=== PATIENT | female | born 1975 | race Caucasian/White ===

== ENCOUNTER 2018-10-10 10:15 | Observation (INO) ==
--- NOTE | 2018-10-10 11:10 | Emergency Department Note ---
Addendum entered and electronically signed by Vernell Erazo 10/10/18 12:55: EKG 10/10/18 1107: HR 95, rhythm sinus, axis normal. AK 147, QRS 102, QTc 497. No evidence of ST elevation or depression. Original Note: Disposition Clinical Impression: Anemia Qualifiers: Anemia type: unspecified type Qualified Code(s): D64.9 - Anemia, unspecified Disposition: Admitted As Inpatient Condition: Good Time of Disposition: 12:37 General Adult HPI - General Chief complaint: ED Recheck/Abnormal Lab/Rx Stated complaint: abnormal lab Time Seen by Provider: 10/10/18 10:58 Source: patient Mode of arrival: private vehicle Limitations: no limitations Nursing Notes Reviewed: Yes Vital Signs Reviewed: Yes - History of Present Illness HPI Narrative: Patient is a 43-year-old female with a past medical history of abnormal uterine bleeding that became more intense after the of her daughter in 2011. Patient states that she began to have a menstrual period the second week of July this year and it continued all the way to the end of August. Patient states that she then began bleeding again this past 10/09/18. She is scheduled to have a D&C on Friday with her [employer] Dr Garduno, she went to have preop screening labs and was found to have a low hemoglobin at 5.5 and was instructed to come to the emergency department to get a blood transfusion and to be admitted. She is currently experiencing vaginal bleeding, feels weak and tired all the time, has a headache, feels chilled, but denies other complaints. Pain Scale: 5 - Related Data Home Medications Medication Instructions Recorded Confirmed RX: ALPRAZolam [Xanax 1 MG Tablet] 1 mg PO QID PRN 07/06/18 10/10/18 RX: Fluticasone Propionate Nasal 2 spr NS DAILY PRN 07/06/18 10/10/18 [Flonase] RX: Gabapentin [Neurontin] 800 mg PO QID 07/06/18 10/10/18 RX: Loratadine [Claritin] 10 mg PO DAILY PRN 07/06/18 10/10/18 RX: Trazodone HCl 50 mg PO HS PRN 07/06/18 10/10/18 RX: rOPINIRole [Requip] 0.25 mg PO HS 07/06/18 10/10/18 Cyanocobalamin (Vitamin B-12) 1,000 mcg PO DAILY 10/10/18 10/10/18 [Vitamin B12] Metoprolol XL (24 HR) Succ [Toprol 25 mg PO DAILY 10/10/18 10/10/18 XL] Multivitamin-Min/Iron/FA/Vit K 1 each PO DAILY 10/10/18 10/10/18 [Multi-Day Plus Minerals Tablet] Allergies Allergy/AdvReac Type Severity Reaction Status Date / Time Cyclobenzaprine Allergy Hives Verified 10/07/18 11:48 [From Flexeril] tramadol AdvReac Vomiting Verified 10/07/18 11:48 Constitutional: Reports: chills. Denies: fever Eyes: Denies: eye pain ENT ED: Denies: ear pain Cardiovascular: Reports: chest pain, palpitations, dyspnea on exertion Respiratory: Reports: dyspnea. Denies: cough, wheezes, hemoptysis Gastrointestinal: Reports: constipation. Denies: abdominal pain, nausea, vomiting, diarrhea Genitourinary: Denies: urgency, dysuria Musculoskeletal: Denies: back pain, neck pain Integumentary: Denies: rash, abrasion Neurological: Reports: headache. Denies: weakness, numbness, paresthesias Psychiatric: Reports: anxiety. Denies: depression Endocrine: Reports: fatigue Hematological/Lymphatic: Denies: easy bleeding, easy bruising Allergic/Immunologic: Denies: facial swelling, urticaria Past Medical History - Past Medical History Medical history: Reports: asthma, hypertension Psychiatric history: Reports: anxiety, depression - Social History Smoking Status: Current every day smoker Smokeless Tobacco Status: No Alcohol use: Reports: none Drug use: Reports: none Physical Exam - General Limitations: no limitations General appearance: alert, in no apparent distress - Head Head exam: atraumatic, normocephalic - Eye Eye exam: Present: PERRL, EOMI, other (subconjunctival pallor) - ENT ENT exam: normal exam, normal oropharynx - Neck Neck exam: Present: normal inspection, full ROM - Chest Chest inspection: Present: normal inspection, symmetric chest wall rise - Respiratory Respiratory exam: Present: normal lung sounds bilaterally - Cardiovascular Cardiovascular exam: Present: normal rhythm, tachycardia - Abdominal Exam Abdominal exam: Present: soft, Non-Tender - Expanded Lower Extremity Exam Hip/Pelvis exam: Present: normal inspection, full ROM - Back Exam Back exam: Present: normal inspection, full ROM - Neurological Exam Neurological exam: Present: alert, oriented X3 - Psychiatric Psychiatric exam: Present: normal affect, normal mood - Skin Skin exam: Present: warm, dry, intact, pallor Course Course Narrative: Pt will have labs redrawn to include CBC, BMP, PT/INR, Type & screen. Will likely be transfused and then admitted. Vital Signs Temperature 98.6 F 10/10/18 10:18 Pulse Rate 106 10/10/18 10:18 Respiratory Rate 18 10/10/18 10:18 Blood Pressure 147/93 10/10/18 10:18 O2 Sat by Pulse Oximetry 100 10/10/18 10:18 Temperature 98.6 F 10/10/18 10:18 Pulse Rate 93 10/10/18 11:18 Respiratory Rate 20 10/10/18 11:18 Blood Pressure 150/77 10/10/18 11:18 O2 Sat by Pulse Oximetry 98 10/10/18 11:18 Oxygen Delivery Oxygen Delivery Room Air Medical Decision Making - MDM Narrative Medical decision making narrative: Pts Hg was 5.4, so she was type & screened and prepared for transfusion. Spoke with Keli Viera with [facility] and she agreed to admit the patient to their service as she is scheduled for a procedure on Friday and will need several more transfusions. Pt verbalized understanding and agreement with the plan. Pt was given an opportunity to ask questions and all of her concerns were addressed. Pt remained stable while in the department. - Medical Records Medical records reviewed: Yes I reviewed the patient's medical records. - Lab Data Lab results reviewed: Yes I reviewed the patient's lab results. Result diagrams: 10/10/18 11:19 10/10/18 11:27 Lab Results 10/10/18 10/10/18 10/10/18 Range/Units 11:19 11:27 11:27 WBC 6.1 (4.3-11.1) K/mcL RBC 2.70 L (3.82-4.97) M/mcL Hgb 5.4 L* (11.5-15.4) g/dL Hct 20.3 L (35.3-44.9) % MCV 75.2 L (83.0-100.0) fL MCH 20.0 L (28.0-33.3) pg MCHC 26.6 L (31.6-35.5) g/dL RDW 17.8 H (11.5-14.5) % Plt Count 311 (140-400) K/mcL MPV 10.3 (9.4-12.4) fL Immature Gran % 0.2 (0-4) % Seg Neutrophils % 71.7 % Lymphocytes % 18.0 % Monocytes % 6.5 % Eosinophils % 3.4 % Basophils % 0.2 % Neutrophils # 4.4 (1.6-8.9) K/mcL Lymphocytes # 1.1 (0.6-4.6) K/mcL Monocytes # 0.4 (0.0-1.3) K/mcL Eosinophils # 0.2 (0.0-0.6) K/mcL Basophils # 0.0 (0.0-0.2) K/mcL Platelet Estimate Normal (Normal) Polychromasia 1+ A (Not Present) Hypochromasia Present A (Not Present) Poikilocytosis 1+ A (Not Present) Anisocytosis 1+ A (Not Present) Microcytosis Present A (Not Present) PT 11.4 (9.4-12.1) Seconds INR 1.0 Sodium 137 (136-145) mEq/L Potassium 3.5 (3.5-5.1) mEq/L Chloride 107 (98-107) mEq/L Carbon Dioxide 23 (23-29) mEq/L BUN 8 (6-20) mg/dL Creatinine 0.54 L (0.60-1.20) mg/dL Est GFR ( Amer) > 60 (> 60) Est GFR (Non-Af Amer) > 60 (> 60) BUN/Creatinine Ratio 15 (6-26) Glucose 120 H (70-105) mg/dL Calculated Osmolality 284 (280-300) Calcium 8.3 L (8.6-10.3) mg/dL Total Bilirubin 0.4 (0.3-1.0) mg/dL AST 12 L (13-39) Units/L ALT 20 (7-52) Units/L Alkaline Phosphatase 73 (34-104) Units/L Troponin I < 0.03 (< 0.04) ng/mL Serum Total Protein 6.4 (6.4-8.9) g/dL Albumin 3.7 (3.5-5.7) g/dL Globulin 2.7 (2.4-3.5) g/dL Albumin/Globulin Ratio 1.4 (1.1-2.2) Blood Type Antibody Screen Crossmatch 10/10/18 Range/Units 11:27 WBC (4.3-11.1) K/mcL RBC (3.82-4.97) M/mcL Hgb (11.5-15.4) g/dL Hct (35.3-44.9) % MCV (83.0-100.0) fL MCH (28.0-33.3) pg MCHC (31.6-35.5) g/dL RDW (11.5-14.5) % Plt Count (140-400) K/mcL MPV (9.4-12.4) fL Immature Gran % (0-4) % Seg Neutrophils % % Lymphocytes % % Monocytes % % Eosinophils % % Basophils % % Neutrophils # (1.6-8.9) K/mcL Lymphocytes # (0.6-4.6) K/mcL Monocytes # (0.0-1.3) K/mcL Eosinophils # (0.0-0.6) K/mcL Basophils # (0.0-0.2) K/mcL Platelet Estimate (Normal) Polychromasia (Not Present) Hypochromasia (Not Present) Poikilocytosis (Not Present) Anisocytosis (Not Present) Microcytosis (Not Present) PT (9.4-12.1) Seconds INR Sodium (136-145) mEq/L Potassium (3.5-5.1) mEq/L Chloride (98-107) mEq/L Carbon Dioxide (23-29) mEq/L BUN (6-20) mg/dL Creatinine (0.60-1.20) mg/dL Est GFR ( Amer) (> 60) Est GFR (Non-Af Amer) (> 60) BUN/Creatinine Ratio (6-26) Glucose (70-105) mg/dL Calculated Osmolality (280-300) Calcium (8.6-10.3) mg/dL Total Bilirubin (0.3-1.0) mg/dL AST (13-39) Units/L ALT (7-52) Units/L Alkaline Phosphatase (34-104) Units/L Troponin I (< 0.04) ng/mL Serum Total Protein (6.4-8.9) g/dL Albumin (3.5-5.7) g/dL Globulin (2.4-3.5) g/dL Albumin/Globulin Ratio (1.1-2.2) Blood Type O POSITIVE Antibody Screen NEGATIVE Crossmatch See Detail Attestation Statement - Attestation Attestation: Resident Attestation: I examined this patient and my medical decision making was reviewed with the Resident Physician. I agree with the documented findings, disposition and treatment plan as described except to the extent set forth below. We independently had [id number] contact with the patient. Patient presenting for results of abnormal hemoglobin. Patient with hemoglobin of 5. Patient with irregular bleeding. Patient scheduled with [facility] here at [facility] for further evaluation. This time patient has fatigue. Patient has significant symptoms stating she feels like she ran a marathon just trying to get to the kitchen. Patient's repeat hemoglobin found to be 5. Patient will undergo transfusion and further admission for [facility] evaluation. Resting comfortable in bed, no acute distress, regular rhythm, clear to auscultation bilaterally, abdomen soft nontender to palpation without guarding or rebound.
[2018-10-10 11:36] LABS: Basophils % 0.2 %; Eosinophils # 0.2 K/mcL (0.0-0.6); Eosinophils % 3.4 %; Hematocrit 20.3 % (35.3-44.9); Immature Granulocytes % 0.2 % (0-4); Lymphocytes # 1.1 K/mcL (0.6-4.6); Mean Corpuscular HGB Conc 26.6 g/dL (31.6-35.5); Mean Corpuscular Volume 75.2 fL (83.0-100.0); Mean Platelet Volume 10.3 fL (9.4-12.4); Monocytes # 0.4 K/mcL (0.0-1.3); Monocytes % 6.5 %; Neutrophils # 4.4 K/mcL (1.6-8.9); Platelet Count 311 K/mcL (140-400); Red Cell Distribution Width 17.8 % (11.5-14.5); Segmented Neutrophils % 71.7 %
[2018-10-10 11:39] LABS: Hemoglobin 5.4 g/dL (11.5-15.4)
[2018-10-10 11:56] LABS: Alanine Aminotransferase 20 Units/L (7-52); Albumin 3.7 g/dL (3.5-5.7); Albumin/Globulin Ratio 1.4 (1.1-2.2); Alkaline Phosphatase 73 Units/L (34-104); Aspartate Amino Transferase 12 Units/L (13-39); BUN/Creatinine Ratio 15 (6-26); Bilirubin,Total 0.4 mg/dL (0.3-1.0); Blood Urea Nitrogen 8 mg/dL (6-20); Calcium 8.3 mg/dL (8.6-10.3); Carbon Dioxide 23 mEq/L (23-29); Chloride 107 mEq/L (98-107); Globulin 2.7 g/dL (2.4-3.5); Glucose 120 mg/dL (70-105); Osmolality,Calculated 284 (280-300); Potassium 3.5 mEq/L (3.5-5.1); Sodium 137 mEq/L (136-145); Total Protein 6.4 g/dL (6.4-8.9); Troponin I < 0.03 ng/mL (< 0.04); eGFR For Non-African Americans > 60 (> 60)
[2018-10-10 11:57] LABS: Anisocytosis 1+ (Not Present); Hypochromasia Present (Not Present); Microcytosis Present (Not Present); Platelet Estimate Normal (Normal); Poikilocytosis 1+ (Not Present); Polychromasia 1+ (Not Present)
[2018-10-10 12:24] LABS: Prothrombin Time 11.4 Seconds (9.4-12.1)
[2018-10-10] MEDS ORDERED: 0.9 % Sodium Chloride 250 ML ONE ×2 (12:39→21:14)
[2018-10-10] MEDS ORDERED: traZODone 50 MG TABLET PO PRN (14:57)
[2018-10-10] MEDS ORDERED: Loratadine 10 MG TABLET PO PRN (14:57)
[2018-10-10] MEDS ORDERED: ALPRAZolam 1 MG TABLET PO PRN (14:57)
[2018-10-10] MEDS ORDERED: Fluticasone Propionate Nasal 50 MCG/SPRAY BOTTLE NS PRN (14:57)
[2018-10-10] MEDS: Gabapentin 400 MG CAPSULE PO SCH ×2 (17:09→21:04)
--- NOTE | 2018-10-10 17:37 | OB/GYN History & Physical ---
Date of Encounter: 10/10/18 Time of Encounter: 17:00 Assessment and Plan (1) Abnormal uterine bleeding Current visit: Yes Status: Acute (2) Anemia Current visit: Yes Status: Acute Place in observation Plan to replace RBCs with 4 units Re-evaluate CBC 4 hours after last unit Plan to discharge tomorrow if Hgb greater than 9 POC per consult with Dr Cline D&C scheduled with Dr Garduno on Friday Qualifiers: Anemia type: unspecified type Qualified Code(s): D64.9 - Anemia, unspecified History of Present Illness Chief complaint: Blood loss anemia HPI: Ms Joseph is a 43-year-old female with a past medical history of abnormal uterine bleeding that became more intense after the of her daughter in 2011. Patient states that she began to have a menstrual period the second week of July this year and it continued all the way to the end of August. Patient states that she then began bleeding again this past 10/09/18. She is scheduled to have a D&C on Friday with her [employer] Dr Garduno. Her preop testing showed a hemoglobin of less than 6 and per anesthesia she is to have a Hgb of 9 or greater. She was told to come to the emergency department for a blood transfusion and to be admitted. She states her bleeding is heavy and c/o weakness, fatigue, and a headache. Past Med Surg Social Fam HX - Past Medical History Medical history: asthma, hypertension Additional medical history: anemia. fibroid tumor Psychiatric history: anxiety, depression - Past Surgical History Additional surgical history: c/s x2. tubal ligation - Social History Smoking Status: Current every day smoker Smokeless Tobacco Status: No Alcohol use: none Drug use: none Medications and Allergies RX: ALPRAZolam [Xanax 1 MG Tablet] 1 mg PO QID PRN 07/06/18 [History] RX: Fluticasone Propionate Nasal [Flonase] 2 spr NS DAILY PRN 07/06/18 [History] RX: Gabapentin [Neurontin] 800 mg PO QID 07/06/18 [History] RX: Loratadine [Claritin] 10 mg PO DAILY PRN 07/06/18 [History] RX: Trazodone HCl 50 mg PO HS PRN 07/06/18 [History] RX: rOPINIRole [Requip] 0.25 mg PO HS 07/06/18 [History] Cyanocobalamin (Vitamin B-12) [Vitamin B12] 1,000 mcg PO DAILY 10/10/18 [Histor y] Metoprolol XL (24 HR) Succ [Toprol XL] 25 mg PO DAILY 10/10/18 [History] Multivitamin-Min/Iron/FA/Vit K [Multi-Day Plus Minerals Tablet] 1 each PO DAILY 10/10/18 [History] Allergy/AdvReac Type Severity Reaction Status Date / Time Cyclobenzaprine Allergy Hives Verified 10/07/18 11:48 [From Flexeril] tramadol AdvReac Vomiting Verified 10/07/18 11:48 Review of System OB All systems PM: reviewed and no additional remarkable complaints except as stated - Constitutional Constitutional ROS IM: as per HPI, daytime sleepiness, fatigue, headache(s) - Genitourinary Genitourinary: abnormal vaginal bleeding, menorrhagia - Menstruation Menstruation: as per HPI, currently menstrual, cycle > 35 days, menses 8 or > days, period heavy Exam - Vital Signs Vital signs: Initial Vital Signs Temp Pulse Resp BP Pulse Ox 98.6 F 106 18 147/93 100 10/10/18 10:18 10/10/18 10:18 10/10/18 10:18 10/10/18 10:18 10/10/18 10:18 - Constitutional Constitutional: well developed, well nourished, no acute distress, obese - HEENT HEENT: Normocephaly, Mucus Membranes Moist - Lungs Respiratory exam: CTAB - Cardiovascular Cardiovascular exam: RRR - Abdomen Abdomen: Present: bowel sounds normal, non tender - Extremities Extremities exam: normal capillary refill, normal inspection, radial pulses palpable and symmetrical - Vulva Vulva: bilateral: normal - Vagina Vagina: Present: normal moisture - Cervix Cervix: Present: discharge (dark red/brown liquid blood from cervix). Absent: lesion - Uterus Uterus exam: Present: normal size. Absent: tender - Adnexa Adnexa: bilateral: normal - Anus/Rectum Anus/Rectum: Present: normal perianal skin Results Result Diagrams: 10/10/18 11:19 10/10/18 11:27 Abnormal lab results RBC 2.70 M/mcL (3.82-4.97) L 10/10/18 11:19 Hgb 5.4 g/dL (11.5-15.4) L* 10/10/18 11:19 Hct 20.3 % (35.3-44.9) L 10/10/18 11:19 MCV 75.2 fL (83.0-100.0) L 10/10/18 11:19 MCH 20.0 pg (28.0-33.3) L 10/10/18 11:19 MCHC 26.6 g/dL (31.6-35.5) L 10/10/18 11:19 RDW 17.8 % (11.5-14.5) H 10/10/18 11:19 Polychromasia 1+ (Not Present) A 10/10/18 11:19 Hypochromasia Present (Not Present) A 10/10/18 11:19 Poikilocytosis 1+ (Not Present) A 10/10/18 11:19 Anisocytosis 1+ (Not Present) A 10/10/18 11:19 Microcytosis Present (Not Present) A 10/10/18 11:19 Creatinine 0.54 mg/dL (0.60-1.20) L 10/10/18 11:27 Glucose 120 mg/dL (70-105) H 10/10/18 11:27 Calcium 8.3 mg/dL (8.6-10.3) L 10/10/18 11:27 AST 12 Units/L (13-39) L 10/10/18 11:27 All other labs normal. - VTE Reasons for not Prescribing Prophylaxis: Treatment not Indicated - Low risk for VTE
[2018-10-10] MEDS ORDERED: rOPINIRole 0.25 MG TABLET PO SCH (21:00)
[2018-10-11 06:32] LABS: Basophils % 0.3 %; Eosinophils # 0.3 K/mcL (0.0-0.6); Eosinophils % 4.6 %; Hematocrit 32.3 % (35.3-44.9); Immature Granulocytes % 0.3 % (0-4); Lymphocytes # 1.6 K/mcL (0.6-4.6); Lymphocytes % 24.7 %; Mean Corpuscular HGB Conc 30.7 g/dL (31.6-35.5); Mean Corpuscular Hemoglobin 23.6 pg (28.0-33.3); Mean Corpuscular Volume 77.1 fL (83.0-100.0); Mean Platelet Volume 10.5 fL (9.4-12.4); Monocytes # 0.5 K/mcL (0.0-1.3); Monocytes % 7.9 %; Platelet Count 303 K/mcL (140-400); Red Blood Count 4.19 M/mcL (3.82-4.97); Segmented Neutrophils % 62.2 %
[2018-10-11 06:33] LABS: Hemoglobin 9.9 g/dL (11.5-15.4)
[2018-10-11 08:17] VITALS: BP 146/83
--- NOTE | 2018-10-11 08:45 | Discharge Summary ---
Date of Encounter: 10/11/18 Time of Encounter: 08:43 - Discharge Diagnosis (1) Abnormal uterine bleeding Priority: Primary Status: Acute (2) Anemia Priority: Secondary Status: Acute Qualifiers: Anemia type: unspecified type Qualified Code(s): D64.9 - Anemia, unspecified (3) Blood transfusion during current hospitalisation Priority: Secondary Status: Acute Comments: 4 units PRBC - Discharge Medications Prescriptions: New Megestrol Acetate [Megace] 40 mg PO BID #2 tablet Continue Fluticasone Propionate Nasal [Flonase] 2 spr NS DAILY PRN PRN Reason: Allergy Symptoms Trazodone HCl 50 mg PO HS PRN PRN Reason: Sleep rOPINIRole [Requip] 0.25 mg PO HS Loratadine [Claritin] 10 mg PO DAILY PRN PRN Reason: Allergy Symptoms Gabapentin [Neurontin] 800 mg PO QID ALPRAZolam [Xanax 1 MG Tablet] 1 mg PO QID PRN PRN Reason: Anxiety Cyanocobalamin (Vitamin B-12) [Vitamin B12] 1,000 mcg PO DAILY Metoprolol XL (24 HR) Succ [Toprol Xl] 25 mg PO DAILY Multivitamin-Min/Iron/FA/Vit K [Multi-Day Plus Minerals Tablet] 1 each PO DAILY Home Medications: ALPRAZolam [Xanax 1 MG Tablet] 1 mg PO QID PRN 07/06/18 [History] Fluticasone Propionate Nasal [Flonase] 2 spr NS DAILY PRN 07/06/18 [History] Gabapentin [Neurontin] 800 mg PO QID 07/06/18 [History] Loratadine [Claritin] 10 mg PO DAILY PRN 07/06/18 [History] Trazodone HCl 50 mg PO HS PRN 07/06/18 [History] rOPINIRole [Requip] 0.25 mg PO HS 07/06/18 [History] Cyanocobalamin (Vitamin B-12) [Vitamin B12] 1,000 mcg PO DAILY 10/10/18 [History] Metoprolol XL (24 HR) Succ [Toprol Xl] 25 mg PO DAILY 10/10/18 [History] Multivitamin-Min/Iron/FA/Vit K [Multi-Day Plus Minerals Tablet] 1 each PO DAILY 10/10/18 [History] Megestrol Acetate [Megace] 40 mg PO BID #2 tablet 10/11/18 [Rx] Allergies/Adverse Reactions: Allergy/AdvReac Type Severity Reaction Status Date / Time Cyclobenzaprine Allergy Hives Verified 10/07/18 11:48 [From Flexeril] tramadol AdvReac Vomiting Verified 10/07/18 11:48 Data Procedures and tests throughout hospitalization: Laboratory Tests 10/10/18 10/10/18 10/10/18 11:19 11:27 11:27 WBC 6.1 RBC 2.70 L Hgb 5.4 L* Hct 20.3 L MCV 75.2 L MCH 20.0 L MCHC 26.6 L RDW 17.8 H Plt Count 311 MPV 10.3 Immature Gran % 0.2 Seg Neutrophils % 71.7 Lymphocytes % 18.0 Monocytes % 6.5 Eosinophils % 3.4 Basophils % 0.2 Neutrophils # 4.4 Lymphocytes # 1.1 Monocytes # 0.4 Eosinophils # 0.2 Basophils # 0.0 Platelet Estimate Normal Polychromasia 1+ A Hypochromasia Present A Poikilocytosis 1+ A Anisocytosis 1+ A Microcytosis Present A PT 11.4 INR 1.0 Sodium 137 Potassium 3.5 Chloride 107 Carbon Dioxide 23 BUN 8 Creatinine 0.54 L Est GFR ( Amer) > 60 Est GFR (Non-Af Amer) > 60 BUN/Creatinine Ratio 15 Glucose 120 H Calculated Osmolality 284 Calcium 8.3 L Total Bilirubin 0.4 AST 12 L ALT 20 Alkaline Phosphatase 73 Troponin I < 0.03 Serum Total Protein 6.4 Albumin 3.7 Globulin 2.7 Albumin/Globulin Ratio 1.4 Blood Type Antibody Screen Crossmatch 10/10/18 10/11/18 11:27 06:00 WBC 6.5 RBC 4.19 Hgb 9.9 L D Hct 32.3 L MCV 77.1 L MCH 23.6 L MCHC 30.7 L RDW 17.0 H Plt Count 303 MPV 10.5 Immature Gran % 0.3 Seg Neutrophils % 62.2 Lymphocytes % 24.7 Monocytes % 7.9 Eosinophils % 4.6 Basophils % 0.3 Neutrophils # 4.0 Lymphocytes # 1.6 Monocytes # 0.5 Eosinophils # 0.3 Basophils # 0.0 Platelet Estimate Polychromasia Hypochromasia Poikilocytosis Anisocytosis Microcytosis PT INR Sodium Potassium Chloride Carbon Dioxide BUN Creatinine Est GFR ( Amer) Est GFR (Non-Af Amer) BUN/Creatinine Ratio Glucose Calculated Osmolality Calcium Total Bilirubin AST ALT Alkaline Phosphatase Troponin I Serum Total Protein Albumin Globulin Albumin/Globulin Ratio Blood Type O POSITIVE Antibody Screen NEGATIVE Crossmatch See Detail Labs on day of discharge: Labs from last 24 hours 10/11/18 10/10/18 10/10/18 06:00 11:27 11:27 WBC 6.5 RBC 4.19 Hgb 9.9 L D Hct 32.3 L MCV 77.1 L MCH 23.6 L MCHC 30.7 L RDW 17.0 H Plt Count 303 MPV 10.5 Immature Gran % 0.3 Seg Neutrophils % 62.2 Lymphocytes % 24.7 Monocytes % 7.9 Eosinophils % 4.6 Basophils % 0.3 Neutrophils # 4.0 Lymphocytes # 1.6 Monocytes # 0.5 Eosinophils # 0.3 Basophils # 0.0 Platelet Estimate Polychromasia Hypochromasia Poikilocytosis Anisocytosis Microcytosis PT INR Sodium 137 Potassium 3.5 Chloride 107 Carbon Dioxide 23 BUN 8 Creatinine 0.54 L Est GFR ( Amer) > 60 Est GFR (Non-Af Amer) > 60 BUN/Creatinine Ratio 15 Glucose 120 H Calculated Osmolality 284 Calcium 8.3 L Total Bilirubin 0.4 AST 12 L ALT 20 Alkaline Phosphatase 73 Troponin I < 0.03 Serum Total Protein 6.4 Albumin 3.7 Globulin 2.7 Albumin/Globulin Ratio 1.4 Blood Type O POSITIVE Antibody Screen NEGATIVE Crossmatch See Detail 10/10/18 10/10/18 11:27 11:19 WBC 6.1 RBC 2.70 L Hgb 5.4 L* Hct 20.3 L MCV 75.2 L MCH 20.0 L MCHC 26.6 L RDW 17.8 H Plt Count 311 MPV 10.3 Immature Gran % 0.2 Seg Neutrophils % 71.7 Lymphocytes % 18.0 Monocytes % 6.5 Eosinophils % 3.4 Basophils % 0.2 Neutrophils # 4.4 Lymphocytes # 1.1 Monocytes # 0.4 Eosinophils # 0.2 Basophils # 0.0 Platelet Estimate Normal Polychromasia 1+ A Hypochromasia Present A Poikilocytosis 1+ A Anisocytosis 1+ A Microcytosis Present A PT 11.4 INR 1.0 Sodium Potassium Chloride Carbon Dioxide BUN Creatinine Est GFR ( Amer) Est GFR (Non-Af Amer) BUN/Creatinine Ratio Glucose Calculated Osmolality Calcium Total Bilirubin AST ALT Alkaline Phosphatase Troponin I Serum Total Protein Albumin Globulin Albumin/Globulin Ratio Blood Type Antibody Screen Crossmatch Date of admission: 10/10/18 12:52 Primary care physician: Forrest Lock Discharging clinician: Kristin Schultz Anticipated date of discharge: 10/11/18 - Patient Status Disposition: Home, Self-Care Condition: Good Functional capacity at discharge: independent ambulation Overall status at discharge: patient is back to baseline - Discharge Instructions Follow Up With: Forrest Lock DO [Primary Care Provider] - Sveta Garduno MD [Partnered Physician] - 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 Garduno. She reports that her bleeding is now moderate to light without significant cramping. She is not passing any clots. She feels well, no lightheadedness or dizziness. She reports she had a headache last evening which has resolved. She reports no nausea or vomiting Time Attestation: Total time spent providing and/or coordinating discharge services: Time Spent: Less than 30 minutes Specific discharge activities: The patient is to take Megace every 12 hours, tonight and tomorrow morning with a sip of water. She is otherwise to be nothing by mouth after midnight except meds as previously discussed. Exam - Constitutional Vitals: Temp Pulse Resp BP Pulse Ox 98.4 F 83 14 146/83 99 10/11/18 08:16 10/11/18 08:16 10/11/18 08:16 10/11/18 08:16 10/11/18 08:16 General appearance IM: A&O X 3, pleasant, no acute distress, obese, answers questions appropriately - Respiratory Respiratory exam: Present: CTAB - Cardiovascular Cardiovascular exam IM: Present: RRR - GI/Abdominal GI/Abdominal exam IM: normal bowel sounds, soft, no peritoneal signs - Extremities Exam Extremities exam IM: Present: normal inspection, warm. Absent: tenderness - Neurological Exam Neurological exam: no focal deficits - VTE Reasons for not Prescribing Prophylaxis: Treatment not Indicated - Low risk for VTE
[2018-10-11] MEDS ORDERED: Multivit/Ca/Min/Fe/FA 1 TAB TABLET PO SCH (09:00)
[2018-10-11] MEDS ORDERED: Metoprolol XL (24 HR) Succ 25 MG TAB.ER.24H PO SCH (09:00)
[2018-10-11] MEDS: Gabapentin 400 MG CAPSULE PO SCH (09:09)
--- NOTE | 2018-10-15 18:15 | Electrocardiograph Report ---
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
== END 2018-10-11 09:45 | disposition home or self-care (01) ==
LOC: EMEROOARM 10:15 → 1NENUOBS 10:15
PROVIDERS: ADMIT Advanced Practice Midwife; ATTEND Advanced Practice Midwife